=== PATIENT | female | born 1955 | race Caucasian/White ===

== ENCOUNTER 2016-09-25 23:26 | Emergency (ER) | payer MEDICAID ==
[~2016-09-25] VITALS: Ht 157.5 cm; Wt 81.0 kg
[~2016-09-25 23:26] MED LIST: BUPR100T4 PO; HYDR-3516 PO
[2016-09-25 23:28] VITALS: BP 192/91; PULSE 63; RESP 16; TEMP 98.1; O2SAT 98
[2016-09-25 23:33] VITALS: TEMP 98; O2SAT 98
[2016-09-26] MEDS ORDERED: ROBA500T PO (00:06)
[2016-09-26] MEDS ORDERED: DICL50TA3 PO (00:06)
--- NOTE | 2016-09-26 00:11 | PD ---
HPI Chief Complaint: Back/ Neck Pain or Injury Time Seen by Provider: 00:07 Travel History International Travel<30 days: No Contact w/Intl Traveler<30days: No Traveled to known affect area: No History of Present Illness HPI 61-year-old white female presents to emergency department with lower back pain. States it's been having pain for the last few days. She states the pain is exacerbated by bending and movement. Some relief with remaining still. This pain is mild to moderate. She has history of back problems with sciatica in the past. She states that she is just stopped taking hydrocodone 5 days ago due to chronic right knee pain. She denies any trauma. No bowel or bladder changes. PFSH Past Medical History Depression: Yes Cancer: No Cardiovascular Problems: No Diabetes: No Diminished Hearing: No Endocrine: No Genitourinary: No Hepatitis: No Hiatal Hernia: No Hypertension: Yes Immune Disorder: No Musculoskeletal: Yes (fell on knee in the past) Neurologic: No Psychiatric: No Reproductive: No Respiratory: No Thyroid Disease: No Tetanus Vaccination: > 5 Years Influenza Vaccination: Yes Menopausal: Yes Tubal Ligation: Yes Past Surgical History Abdominal Surgery: Yes (HERNIA REPAIR; GASTRIC BYPASS) AICD: No Cardiac Surgery: Yes (breast reduction 1999) Section: Yes (X 2) Ear Surgery: No Endocrine Surgery: No Eye Surgery: No Gynecologic Surgery: Yes (2 c sections) Joint Replacement: No Oral Surgery: No Pacemaker: No Other Surgery: Yes (BILATERAL BREAST REDUCTION/ABDOMINOPLASTY) Social History Alcohol Use: No (PT DENIES) Tobacco Use: No Substance Use: No Allergies-Medications (Allergen,Severity, Reaction): Coded Allergies: Tramadol (Verified Allergy, Mild, itching , 08/31/16) Adhesives (Verified Adverse Reaction, Intermediate, 08/31/16) silk tape Reported Meds & Prescriptions Reported Meds & Active Scripts Active Hydrocodone-Acetaminophen 5-325 mg Tab 1 Tab PO HS PRN Bupropion HCl 100 Mg Tab 150 Mg PO BID Review of Systems Except as stated in HPI: all other systems reviewed are Neg General / Constitutional: No: Fever, Chills Eyes: No: Blurred Vision, Photophobia HENT: No: Headaches, Sore Throat Cardiovascular: No: Chest Pain or Discomfort, Palpitations Respiratory: No: Cough, Shortness of Breath Gastrointestinal: No: Nausea, Vomiting, Abdominal Pain Genitourinary: No: Frequency, Dysuria Musculoskeletal: Positive: Arthralgias, Pain, No: Limited ROM Skin: No Rash, No Itching Physical Exam Narrative GENERAL: Well-developed, well-nourished in no apparent distress. Nontoxic appearing. HEAD: Normocephalic, atraumatic. EYES: Pupils equal round and reactive. Extraocular motions intact. No scleral icterus. No injection or drainage. ENT: Nose clear. Throat without erythema, tonsillar hypertrophy or exudate. Uvula midline. Airway patent. NECK: Trachea midline. Supple, nontender, moves head freely. No central bony tenderness or spasm. CARDIOVASCULAR: Regular rate and rhythm without murmurs, gallops, or rubs. RESPIRATORY: Clear to auscultation. Breath sounds equal bilaterally. No wheezes , rales, or rhonchi. GASTROINTESTINAL: Abdomen soft, non-tender, nondistended. No hepato-splenomegaly , or palpable masses. No guarding. EXTREMITIES: No clubbing, cyanosis, or edema. No joint tenderness. BACK: No central bony tenderness to palpation of dorsal lumbar spine without deformity. No flank tenderness. No saddle anesthesia. She complains of left lower back pain into her left buttocks. Negative straight leg raise bilaterally. Neurovascular intact distally. NEUROLOGICAL: Awake, alert and oriented x 3 .Cranial nerves grossly intact. Motor and sensory grossly within normal limits. Normal speech. Data Data Last Documented VS Vital Signs Date Time Temp Pulse Resp B/P Pulse Ox O2 Delivery O2 Flow Rate FiO2 09/25/16 23:52 18 09/25/16 23:33 98.0 151 98 Room Air 09/25/16 23:28 192/91 Orders Naproxen (Naprosyn) (09/26/16 00:15) Cyclobenzaprine (Flexeril) (09/26/16 00:15) [facility] Medical Decision Making Medical Screen Exam Complete: Yes Emergency Medical Condition: Yes Medical Record Reviewed: Yes Differential Diagnosis MDM: High Differential diagnoses: AAA,Fracture, sprain, strain, HNP, nerve or vascular injury, epidural abscess, pilonidal cyst, pyelonephritis, UTI, nephrolithiasis, ureterolithiasis Narrative Course Patient is given Naprosyn 500 and Flexeril 10 mg by mouth. Review of the floor prescription drug monitoring program indicates that the patient has been getting a monthly prescription of hydrocodone nearly for the past year up until 5 days ago. I question whether this may be a drug-seeking behavior. I mentioned this to the patient but she states that she had been getting pain medication for her knee and no longer needs it. I will give her Naprosyn and Flexeril here and prescription for diclofenac and Robaxin and she is advised to follow-up with her doctor. Diagnosis Primary Impression: Low back pain Patient Instructions: General Instructions Additional Instructions: Rest. Ice for the next 3 days followed by heat . Robaxin and Voltaren. Follow-up with a primary care doctor in 2-3 days. Return to the ER for emergencies. Med/Other Pt SpecificInfo: Prescription(s) given Scripts Methocarbamol (Robaxin)500 Mg [id number] Mg PO QID #28 TAB Prov:Neli Ray MD 09/26/[address] 50 Mg Tabdr50 Mg PO TID #21 TAB Prov:Neli Ray MD 09/26/16 Disposition: 01 DISCHARGE HOME Condition: Stable Brian Dee Sep 26, 2016 00:10
[2016-09-26] MEDS ORDERED: NAPROXEN 500 MG TAB PO ONE (00:15)
[2016-09-26] MEDS ORDERED: METHOCARBAMOL 500 MG TAB PO ONE (00:15)
[2016-09-26] MEDS ORDERED: CYCLOBENZAPRINE HCL 10 MG TAB PO ONE (00:15)
[2016-09-27] MEDS ORDERED: BUPR100T4 PO (14:32)
[2017-01-11] MEDS ORDERED: LISI-515 PO (14:46)
[2017-01-18] MEDS ORDERED: LISI-515 PO (09:37)
[2017-01-22] MEDS ORDERED: BENA20TA4 PO (14:41)
[2017-01-25] MEDS ORDERED: HYDR25TA5 PO (13:16)
[2017-01-25] MEDS ORDERED: LISI-515 PO (13:16)
== END 2016-09-26 00:29 | disposition home or self-care (01) ==
LOC: NEPB 23:26
DX: M54.5 Low back pain (principal); I10 Essential (primary) hypertension
CPT/HCPCS: 99283

== ENCOUNTER 2017-12-30 08:07 | Emergency (ER) | payer MEDICAID, OTHER ==
[~2017-12-30] VITALS: Ht 157.5 cm; Wt 89.0 kg
[~2017-12-30 08:07] MED LIST changes: +AMLO2.5T PO; +AZIT500T2 PO; +BROMSYP PO; +CLOT1CRE23 VAGINAL; -HYDR-3516 PO; +OSEL75 PO
[2017-12-30 08:21] VITALS: BP 162/89; PULSE 72; RESP 22; TEMP 98.6; O2SAT 96
[2017-12-30] MEDS ORDERED: CITA10TA4 PO (08:38)
[2017-12-30] MEDS ORDERED: HYDR25TA5 PO (08:38)
[2017-12-30] MEDS ORDERED: SODIUM CHLORIDE 0.9% FLUSH 10 ML FLUSH IVF PRN (09:00)
[2017-12-30] MEDS ORDERED: methylPREDNISolone SOD SUCC 125 MG/2 ML VIAL IV PUSH ONE (09:00)
[2017-12-30] MEDS: RESP: ALBUTEROL 2.5 MG/IPRATROPIUM 0.5 MG NEB (SCH) INH ×2 (09:00→09:01)
[2017-12-30 09:15] LABS: AUTOMATED NEUTROPHIL # 5.4 TH/MM3 (1.8-7.7); BASOPHIL # 0.1 TH/MM3 (0-0.2); BASOPHIL % 0.7 % (0.0-2.0); EOSINOPHIL # 0.3 TH/MM3 (0-0.4); EOSINOPHIL % 3.8 % (0.0-4.0); HEMOGLOBIN 13.5 GM/DL (11.6-15.3); LYMPH % 23.7 % (9.0-44.0); LYMPHOCYTE # 2.1 TH/MM3 (1.0-4.8); MEAN CELL VOLUME 88.7 FL (80.0-100.0); MEAN CORPUSCULAR HEMOGLOBIN 30.7 PG (27.0-34.0); MEAN CORPUSCULAR HGB CONC 34.6 % (32.0-36.0); MEAN PLATELET VOLUME 7.1 FL (7.0-11.0); MONO % 10.6 % (0.0-8.0); MONOCYTE # 0.9 TH/MM3 (0-0.9); NEUT % 61.2 % (16.0-70.0); PLATELET COUNT 384 TH/MM3 (150-450); RED BLOOD COUNT 4.39 MIL/MM3 (4.00-5.30); RED CELL DISTRIBUTION WIDTH 14.3 % (11.6-17.2); WHITE BLOOD COUNT 8.8 TH/MM3 (4.0-11.0)
[2017-12-30] MEDS ORDERED: ACETAMINOPHEN 325 MG TAB PO ONE (09:15)
[2017-12-30 10:07] LABS: ALBUMIN 3.6 GM/DL (3.4-5.0); ALKALINE PHOSPHATASE 87 U/L (45-117); ALT (GPT) 24 U/L (10-53); AST (GOT) 35 U/L (15-37); BICARBONATE 30.6 MEQ/L (21.0-32.0); BLOOD UREA NITROGEN 7 MG/DL (7-18); CALCIUM 8.7 MG/DL (8.5-10.1); CHLORIDE 100 MEQ/L (98-107); CREATININE 0.83 MG/DL (0.50-1.00); GLOMERULAR FILTRATION RATE 70 ML/MIN (>89); GLUCOSE,RANDOM 108 MG/DL (74-106); SODIUM (NA) 139 MEQ/L (136-145); TOTAL BILIRUBIN ADULT 0.5 MG/DL (0.2-1.0); TOTAL PROTEIN 8.7 GM/DL (6.4-8.2)
--- NOTE | 2017-12-30 10:13 | RADRPT ---
EXAM DATE/TIME: 12/30/2017 09:27 [facility] COMPARISON: No previous studies available for comparison. INDICATIONS : Cough and Short of Breath MEDICAL HISTORY : None. SURGICAL HISTORY : None. ENCOUNTER: Initial ACUITY: 1 day PAIN SCORE: 2/10 LOCATION: chest FINDINGS: PA and lateral views of the chest demonstrate the lungs to be symmetrically aerated without evidence of mass, infiltrate or effusion. No evidence of pneumothorax. The cardiomediastinal contours are un remarkable. Osseous structures are intact. CONCLUSION: The lungs are clear. Gigi Hanna MD on December 30, 2017 at 10:11 Board Certified Radiologist. This report was verified electronically.
[2017-12-30] MEDS ORDERED: POTASSIUM CHLORIDE 10 MEQ CONTROLLED RELEASE TAB PO ONE (10:15)
[2017-12-30] MEDS ORDERED: ZITHTAB PO (10:38)
[2017-12-30] MEDS ORDERED: PRED50 PO (10:38)
[2017-12-30] MEDS ORDERED: VENTAER INH (10:38)
--- NOTE | 2017-12-30 10:38 | PD ---
HPI Chief Complaint: Cold / Flu Symptoms Time Seen by Provider: 08:39 Travel History International Travel<30 days: No Contact w/Intl Traveler<30days: No Traveled to known affect area: No History of Present Illness HPI Patient is a 62 year old female who comes in complaining of shortness of breath. She says that this has been going on for the past 3 days and got worse last night. She reports a cough productive of phlegm. She denies fever or chills. She denies chest pain, leg swelling or pain. She has tried Benadryl, Tylenol and Ibuprofen without relief of her symptoms. Severity is moderate. PFSH Past Medical History Depression: Yes Cancer: No Cardiovascular Problems: No Diabetes: No Diminished Hearing: No Endocrine: No Genitourinary: No Hepatitis: No Hiatal Hernia: No Hypertension: Yes Immune Disorder: No Musculoskeletal: Yes (fell on knee in the past) Neurologic: No Psychiatric: No Reproductive: No Respiratory: No Thyroid Disease: No Menopausal: Yes Tubal Ligation: Yes Past Surgical History Abdominal Surgery: Yes (HERNIA REPAIR; GASTRIC BYPASS) AICD: No Cardiac Surgery: Yes (breast reduction 1999) Section: Yes (X 2) Ear Surgery: No Endocrine Surgery: No Eye Surgery: No Gynecologic Surgery: Yes (2 c sections) Oral Surgery: No Pacemaker: No Other Surgery: Yes (BILATERAL BREAST REDUCTION/ABDOMINOPLASTY) Social History Alcohol Use: No Tobacco Use: No Substance Use: No Allergies-Medications (Allergen,Severity, Reaction): Coded Allergies: tramadol (Unverified Allergy, Mild, itching , 12/30/17) adhesive (Unverified Adverse Reaction, Intermediate, 12/30/17) silk tape Reported Meds & Prescriptions Reported Meds & Active Scripts Active Reported Hydrochlorothiazide 25 Mg Tab 25 Mg PO DAILY Citalopram (Citalopram Hydrobromide) 10 Mg Tab 10 Mg PO DAILY Review of Systems Except as stated in HPI: all other systems reviewed are Neg General / Constitutional: No: Fever HENT: No: Headaches, Lightheadedness Cardiovascular: No: Chest Pain or Discomfort Respiratory: Positive: Cough, Shortness of Breath Gastrointestinal: No: Nausea, Vomiting Musculoskeletal: No: Edema Skin: No Rash, No Change in Pigmentation Neurologic: No: Weakness, Dizziness Physical Exam Narrative GENERAL: Awake and alert, in no acute distress. SKIN: Focused skin assessment warm/dry. HEAD: Atraumatic. Normocephalic. EYES: Pupils equal and round. No scleral icterus. ENT: Mucous membranes pink and moist. NECK: Trachea midline. No JVD. CARDIOVASCULAR: Regular rate and rhythm. No murmur appreciated. RESPIRATORY: No accessory muscle use. Diffuse wheezing throughout both lungs. Breath sounds equal bilaterally. GASTROINTESTINAL: Abdomen soft, non-tender, nondistended. MUSCULOSKELETAL: No obvious deformities. No clubbing. No cyanosis. No edema. NEUROLOGICAL: Awake and alert. No obvious cranial nerve deficits. Motor grossly within normal limits. Normal speech. PSYCHIATRIC: Appropriate mood and affect; insight and judgment normal. Data Data Last Documented VS Vital Signs Date Time Temp Pulse Resp B/P (MAP) Pulse Ox O2 Delivery O2 Flow Rate FiO2 12/30/17 08:21 98.6 72 22 162/89 (113) 96 Orders Orders Complete Blood Count With Diff (12/30/17 08:52) Comprehensive Metabolic Panel (12/30/17 08:52) Iv Access Insert/Monitor (12/30/17 08:52) Ecg Monitoring (12/30/17 08:52) Oximetry (12/30/17 08:52) Oxygen Administration (12/30/17 08:52) Chest, Pa & Lat (12/30/17 08:52) Sodium Chloride 0.9% Flush (Ns Flush) (12/30/17 09:00) Albuterol-Ipratropium Neb (Duoneb Neb) (12/30/17 09:00) Methylprednisolone So Succ Inj (Solumedr (12/30/17 09:00) Acetaminophen (Tylenol) (12/30/17 09:15) Potassium Chloride (Kcl) (12/30/17 10:15) Labs Laboratory Tests Test 12/30/17 09:00 White Blood Count 8.8 TH/MM3 Red Blood Count 4.39 MIL/MM3 Hemoglobin 13.5 GM/DL Hematocrit 39.0 % Mean Corpuscular Volume 88.7 FL Mean Corpuscular Hemoglobin 30.7 PG Mean Corpuscular Hemoglobin Concent 34.6 % Red Cell Distribution Width 14.3 % Platelet Count 384 TH/MM3 Mean Platelet Volume 7.1 FL Neutrophils (%) (Auto) 61.2 % Lymphocytes (%) (Auto) 23.7 % Monocytes (%) (Auto) 10.6 % Eosinophils (%) (Auto) 3.8 % Basophils (%) (Auto) 0.7 % Neutrophils # (Auto) 5.4 TH/MM3 Lymphocytes # (Auto) 2.1 TH/MM3 Monocytes # (Auto) 0.9 TH/MM3 Eosinophils # (Auto) 0.3 TH/MM3 Basophils # (Auto) 0.1 TH/MM3 CBC Comment DIFF FINAL Differential Comment Blood Urea Nitrogen 7 MG/DL Creatinine 0.83 MG/DL Random Glucose 108 MG/DL Total Protein 8.7 GM/DL Albumin 3.6 GM/DL Calcium Level 8.7 MG/DL Alkaline Phosphatase 87 U/L Aspartate Amino Transf (AST/SGOT) 35 U/L Alanine Aminotransferase (ALT/SGPT) 24 U/L Total Bilirubin 0.5 MG/DL Sodium Level 139 MEQ/L Potassium Level 2.7 MEQ/L Chloride Level 100 MEQ/L Carbon Dioxide Level 30.6 MEQ/L Anion Gap 8 MEQ/L Estimat Glomerular Filtration Rate 70 ML/MIN MDM Medical Decision Making Medical Screen Exam Complete: Yes Emergency Medical Condition: Yes Medical Record Reviewed: Yes Differential Diagnosis Bronchitis versus pneumonia versus URI Narrative Course Patient is a 62-year-old female who comes in complaining of shortness of breath and cough. Exam shows diffuse wheezing in both lungs. IV established, labs sent. Labs show a potassium of 2.7, this was replaced. Chest x-ray performed shows no acute abnormalities. Last 24 hours Impressions Chest X-Ray 12/30/17 0852 Signed Impressions: Service Date/Time: Saturday, December 30, 2017 09:27 - CONCLUSION: The lungs are clear. Gigi Hanna MD Patient given 3 DuoNeb's and Solu-Medrol. She reports feeling better. Lung sounds are now clear. She will be discharged with prescriptions for albuterol, prednisone, azithromycin. She is advised to eat a few bananas over the next few days as the albuterol can also lower her potassium. She is advised follow- up with her doctor. Advised return to the ED as needed for any worsening symptoms. Diagnosis Primary Impression: Acute bronchitis Qualified Codes: J20.9 - Acute bronchitis, unspecified Patient Instructions: Acute Bronchitis (ED), General Instructions Additional Instructions: Follow-up with your doctor. Take all of your antibiotic. Use albuterol as needed for shortness of breath. Start the prednisone tomorrow as you had a dose of steroids already today. Return to the ED as needed for any worsening symptoms. Scripts Azithromycin (Zithromax Z-Daniel) 250 Mg Dspk 250 MG PO DIRECTED for Infection, #1 DSPK 0 Refills 500 MG (2 tabs) day 1, then 1 tab days 2-5. Prov: Sarina Lopez MD 12/30/17 Prednisone (Prednisone) 50 Mg Tab 50 MG PO DAILY for 4 Days, #4 TAB 0 Refills Prov: Sarina Lopez MD 12/30/17 Albuterol 18 GM Inh (Ventolin Hfa 18 GM Inh) 90 Mcg/Act Aer 2 PUFF INH Q4-6H Y for SHORTNESS OF BREATH, #1 INHALER 0 Refills Prov: Sarina Lopez MD 12/30/17 Disposition: 01 DISCHARGE HOME Condition: Stable Sarina Lopez MD December 30, 2017 10:38
== END 2017-12-30 10:51 | disposition home or self-care (01) ==
LOC: NEPE 08:07
DX: J20.9 Acute bronchitis, unspecified (principal); E87.6 Hypokalemia; I10 Essential (primary) hypertension; F32.9 Major depressive disorder, single episode, unspecified
CPT/HCPCS: 71046; 80053; 85025; 94640; 94664; 96374; 99284; J2930